=== PATIENT | female | born 1975 | race Native Hawaiian/Other Pacific Islander ===

== ENCOUNTER → 2019-08-12 15:06 | Outpatient (CLI) | payer BC, SELFPAY ==
[2019-08-16 08:38] LABS: COVID19 Sendout Detected (Not Detected)
== END ==
PROVIDERS: Visit Provider Physician Assistant
DX: Z20.828 Contact with and (suspected) exposure to other viral communicable diseases (principal)
CPT/HCPCS: 87635

== ENCOUNTER 2021-10-06 18:45 | Emergency (ER) | payer BC, SELFPAY ==
[2021-10-06 18:58] VITALS: BP 180/100; PULSE 90; RESP 16; TEMP 37; O2SAT 96; BMI 24.0
--- NOTE | 2021-10-06 19:13 | ED_ITS ---
HPI - Female Genitourinary General Chief complaint: Urogenital-Female Stated complaint: UTI Time Seen by Provider: 10/06/21 19:04 Source: patient Mode of arrival: Ambulatory History of Present Illness HPI Narrative: 45-year-old female, nonsmoker, presents to the emergency department with complaints of dysuria x2 weeks. Patient reports that she does get off work until after the clinics are closed, but the burning with urination has gotten worse. Patient admits to not drinking as much water as she should. Patient has had UTIs in the past and this feels identical. Related Data Previous Rx's Medication Instructions Recorded ciprofloxacin HCl 500 mg tablet 500 mg PO BID 5 days #0 tabs 03/18/17 (Cipro) oseltamivir 75 mg capsule (Tamiflu) 75 mg PO BID 5 days #0 caps 03/18/17 sodium,potassium,mag sulfates 17.5 See Rx Instructions PO .COMPLEX 09/25/21 gram-3.13 gram-1.6 gram oral soln #354 mL (Suprep Bowel Prep Kit) nitrofurantoin 100 mg PO BID uti 7 days #14 caps 10/06/21 monohydrate/macrocrystals 100 mg capsule (Macrobid) Allergies Allergy/AdvReac Type Severity Reaction Status Date / Time shellfish derived Allergy Unknown Verified 10/06/21 19:02 [SHELLFISH DERIVED] Review of Systems Review of Systems Narrative: Narrative: GENERAL: Denies chills, fatigue, fever, sweats. See HPI HEENT: Denies sinus pain, ear pain, sore throat, difficulty swallowing, dizziness. RESPIRATORY: Denies dyspnea, cough, wheezing, sputum. CARDIOVASCULAR: Denies chest pain, palpitations, edema. GASTROINTESTINAL: Denies nausea, vomiting, abdominal pain, diarrhea, constipation. : Denies frequency, incontinence, hematuria, urinary retention, flank pain. MSK: Denies weakness, joint pain, or bony pain. SKIN: Denies rash, skin lesions, or pruritis. NEUROLOGIC: Denies weakness, dizziness, headache, numbness, confusion. PSYCHIATRIC: No concerning psychosocial issues. Patient History alcohol intake frequency: 0-2 drinks per day Substance Use Type: does not use Exam Narrative Exam Narrative: Exam Narrative: GENERAL: This is a well-nourished, well-developed patient, in no acute distress HEAD: Atraumatic. Normocephalic. CARDIOVASCULAR: Regular rate and rhythm without murmurs, peripheral pulses intact, cap refill <2 sec. RESPIRATORY: Breath sounds equal and clear bilaterally. No wheezes, rales, or rhonchi. No cough. No increased respiratory effort. No accessory muscle use. GASTROINTESTINAL: Abdomen soft, non-tender, nondistended without guarding or rebound. No suprapubic pain. MSK: Moves all extremities. Normal range of motion, no clubbing or edema. Neurovascularly intact. NEURO: A&O x 3. SKIN: Warm, dry, no rashes or lesions noted. Initial Vital Signs Initial Vital Signs: Vital Signs Temperature 98.6 F 10/06/21 18:58 Pulse Rate 90 10/06/21 18:58 Respiratory Rate 16 10/06/21 18:58 Blood Pressure 180/100 H 10/06/21 18:58 Pulse Oximetry 96 10/06/21 18:58 Oxygen Delivery Method 10/06/21 18:58 Reviewed. Patient and her family doctor are aware of her elevated BP, but did just eat a very greasy dinner, that she was told to avoid. Course Orders Ordered: Discontinued Medications Nitrofurantoin Macrocrystals (Nitrofurantoin Er 100 Mg Capsule) 100 mg PO NOW ONE Stop: 10/06/21 19:27 Last Admin: 10/06/21 19:28 Dose: 100 mg Documented By: AT Vital Signs Vital signs: Vital Signs - 8 hr 10/06/21 18:58 Temperature 98.6 F Pulse Rate 90 Respiratory Rate 16 Blood Pressure 180/100 H Pulse Oximetry 96 Oxygen Delivery Method Room Air MDM - Female Genitourinary Differential Diagnosis Differential diagnosis: Likely urinary tract infection Lab Data Labs: Urine Dip Bedside Urine Glucose 1000 mg/dl Bedside Urine Bilirubin - Negative Bedside Urine Ketone - Negative Urine Specific [place] 1.015 Bedside Urine Occult Blood +/- Bedside Urine pH 6.0 Bedside Urine Protein + 30 Bedside Urine Urobilinogen - Negative Bedside Urine Nitrite - Negative Bedside Urine Leukocytes +/- 15 Esterase [facility] Narrative Medical decision making narrative: 45-year-old female with complaints of dysuria presents emergency department. Urine dip was consistent with UTI (+ bacteria and wbc's). Will treat with Macrobid x7 days. Due to pharmacies being closed, will give the 1st dose in the emergency department. Discussed plan of care and return precautions with patient, who was agreeable with course of action. Discharge Plan Departure Patient Disposition: Home Clinical Impression: UTI (urinary tract infection) Instructions: DI for Urinary Tract Infection (UTI) Activity Restrictions/Additional Instructions: *You have been diagnosed with a urinary tract infection. Please make sure you drink plenty of water with this medication and take it until it is all gone. Will send off a sample for culture and contact you only for requires a change in antibiotics. Please follow-up with your family doctor if symptoms persist or worsen. *What to do: *Please continue to take your regular medications as directed. [ x] New medication prescriptions sent to your pharmacy: [[facility] [place]] [ ] New medication written as a paper prescription [ ] No new medications given *Please follow up with your primary care provider in 2-3 days, call for an appointment. Let them know you were seen in the Emergency Department and that we ask that you be seen in follow up. We will electronically transmit a record of today's note if your PCP is in our system *If you do not have a primary care provider please contact the [facility] Resource line at [phone]. They will ask some questions about your medical history and help get you set up with a doctor in the community. ? Return to ER if you should have any new, worsening or concerning symptoms, such as worsening pain, severe headache, confusion, chest pain, difficulty breathing, fever greater than 101 F, shaking chills, persistent vomiting to the point that you cannot drink fluids, or other new or worsening symptoms. Prescriptions: New nitrofurantoin monohyd/m-cryst [Macrobid] 100 mg capsule 100 mg PO BID 7 Days Qty: 14 0RF Rx Instructions: must administer with a meal/food No Action oseltamivir [Tamiflu] 75 MG capsule 75 mg PO BID 5 Days Qty: 0 0RF ciprofloxacin HCl [Cipro] 500 MG tablet 500 mg PO BID 5 Days Qty: 0 0RF Suprep Bowel Prep Kit 17.5-3.13-1.6 gram recon soln See Rx Instructions PO .COMPLEX Qty: 354 0RF Rx Instructions: Take as directed by Physician Referrals: Juan Antonio Jewell DO [Primary Care Provider] - Visit Report Forms: Patient Portal/API
[2021-10-06] MEDS: NITROFURANTOIN ER 100 MG CAPSULE PO (19:28)
== END 2021-10-06 19:30 | disposition home or self-care (01) ==
PROVIDERS: Emergency Provider Registered Nurse; PCP Family Medicine Sports Medicine
DX: N39.0 Urinary tract infection, site not specified (principal)
CPT/HCPCS: 81003; 99283

== ENCOUNTER → 2022-03-09 13:17 | Outpatient (CLI) | payer BC, SELFPAY ==
--- NOTE | 2022-03-09 | DI.MG.S_ITS ---
BILATERAL DIGITAL SCREENING MAMMOGRAM 3D/2D WITH CAD: 03/09/2022 CLINICAL: Baseline exam. Routine screening. No prior exams were available for comparison. Both breasts are heterogeneously dense, which may obscure small masses (category c / 51-75% glandular tissue). Current study was also evaluated with a Computer Aided Detection (CAD) system. There are benign diffuse calcifications in both breasts. No significant masses, calcifications, or other findings are seen in either breast. IMPRESSION: BENIGN There is no mammographic evidence of malignancy. A 1 year screening mammogram is recommended. Based on the Tyrer Cuzick model (a risk assessment model) the patient's lifetime risk is 6.8% and her 10 year risk is 1.4%. According to the ACR, ACS, and NCCN guidelines, an annual breast MRI exam along with mammogram is recommended if the patient's lifetime risk is 20% or greater. This exam was interpreted at Station ID: [id number]. NOTE: For mammograms, a report in lay terms will be sent to the patient. Approximately 15% of breast malignancies will not be visualized mammographically. In the management of a palpable breast mass, a negative mammogram must not discourage biopsy of a clinically suspicious lesion. Electronically Signed By: Ed reich/faisal:03/09/2022 17:49:13 letter sent: Normal Exam ACR BI-RADS Category 2: Benign Finding(s) 3342F
== END ==
PROVIDERS: PCP Physician Assistant; Referring Provider Physician Assistant; Visit Provider Physician Assistant
DX: Z12.31 Encounter for screening mammogram for malignant neoplasm of breast (principal)
CPT/HCPCS: 77063; 77067

== ENCOUNTER 2022-03-31 11:45 | Day surgery (SDC) | payer BC, SELFPAY ==
--- NOTE | 2022-03-31 | PATH_ITS ---
[facility] Accession Number: [id number] No. of containers..01 Tissue . 01 Material submitted: . colon - TRANSVERSE COLON . 01 Diagnosis: Transverse Colon, Biopsy: Colonic mucosa with a benign lymphoid aggregate, and no other diagnostic abnormality. Negative for active, chronic, and microscopic colitis. Negative for dysplasia and malignancy. MRV 04/06/2022 1345 Local . 01 Electronically signed: . Tuh Fonseca MD, Pathologist NPI- [id number] . 01 Gross description: . TRANSVERSE COLON: Received in formalin are 2 fragment(s) of penny, soft tissue measuring 0.2 x 0.1 x 0.1 cm to 0.1 x 0.1 x 0.1 cm submitted entirely in 1 cassette(s) /CPE 04/01/2022 0507 Local . 01 Pathologist provided ICD-10: Z12.11 . 01 CPT . 879976 Specimen Comment: A courtesy copy of this report has been sent to [phone] Performed at: 01 [facility] [address] [place] [address], [place], [place] [id number] MD Vipin Marmolejo MD Phone: [phone]
[2022-03-31 13:06] VITALS: BP 111/76; PULSE 85; RESP 16; TEMP 36.4; O2SAT 97; BMI 23.8
[2022-03-31] MEDS: LACTATED RINGERS 1,000 ML 100 ML IV (13:20)
--- NOTE | 2022-03-31 14:04 | PM.HP.1 ---
History of Present Illness History of Present Illness Date Patient Seen: 03/31/22 Time Patient Seen: 14:04 Chief complaint: SCREENING COLONOSCOPY Narrative: The patient presents for colorectal screening. They have never had any previous examination for such. No personal or family history of colon cancer. On further history denies any recent gastrointestinal symptoms. No nausea, vomiting, abdominal pain, loss of appetite, unexplained weight loss, change in bowel habits, or blood per rectum. Patient History Medical History (Updated 03/31/22 @ 13:08 by Danilo Santamaria RN) Diabetes 1.5, managed as type 2 Family & Social History Social History: household members children Tobacco & Substance use: Smoking Status Never smoker alcohol intake never alcohol intake frequency 0-2 drinks per day Substance Use Type does not use Meds Home Medications and Allergies Home Medications Medication Instructions Recorded Confirmed Type insulin glargine 100 unit/mL (3 unit SUBCUT 03/31/22 History mL) subcutaneous pen (Lantus Solostar U-100 Insulin) metformin 500 mg tablet 500 mg 03/31/22 History Allergies Allergy/AdvReac Type Severity Reaction Status Date / Time shellfish derived Allergy Unknown Verified 10/06/21 19:02 [SHELLFISH DERIVED] Exam Vital Signs (past 8 hours): - 03/31/22 13:06 Temperature 97.6 F Pulse Rate 85 Respiratory Rate 16 Blood Pressure 111/76 Pulse Oximetry 97 Oxygen Delivery Method Room Air Oxygen Delivery Method Room Air Narrative Exam Narrative: General adult woman alert oriented no acute distress Assessment & Plan Assessment & Plan narrative: The patient requires colorectal screening and colonoscopy is recommended. Technical details were discussed. Risks, benefits, alternatives explained. Risks including but not limited to myocardial infarction, aspiration, bleeding, pain, missed lesion, incomplete examination, need for further radiographic studies, colonic perforation, and need for major abdominal surgery were discussed. All questions were answered to their satisfaction, and they are in agreement with this plan. Time Spent With Patient Critical Care time: I spent a total of [] minutes of critical care time on this patient's care today; this time is exclusive of procedural time.
--- NOTE | 2022-03-31 14:05 | PM.OP.COLON ---
Operative Date/Time/Diagnoses Date of procedure: 03/31/22 Time of procedure: 14:11 Pre-op diagnosis: colorectal screening Post-op diagnosis: same Procedure & Clinicians Study performed: colonoscopy Same procedure as scheduled: Yes Indications: colorectal screening Surgeon: Parker Michel Procedure Notes Procedure in detail: The history and physical was performed/updated and the patient is ASA class is 2. The procedure was discussed in detail with the patient. Potential risks complications including infection, bleeding, missed diagnosis, perforation, need for surgery, and were explained. Their questions were answered and informed consent was obtained. Patient was brought to the procedure room and placed standard monitoring equipment. The patient's vital signs were monitored continuously throughout the entire procedure. Prior to starting time-out was performed. The patient was placed in the left lateral recumbent position. Procedural sedation was administered by anesthesia. Examination began with a thorough inspection of the perianal area there was no evidence of fissures, fistulae, external hemorrhoids or cutaneous malignancy. The colonoscopy scope was then placed into the anal canal and was advanced to the cecum, which was identified by the ileocecal valve, the appendiceal orifice and the confluence of the taenia. The scope was then slowly withdrawn examining colon thoroughly in all directions, irrigating it of any residual stool. -3 mm polyp removed from the descending colon with Jumbo forceps The patient tolerated the procedure well. They will be discharged once criteria are met. The prep was of good/excellent quality. The withdrawl time was 7 minutes. Specimen(s): other (Descending colon polyp) Impression: Colonic polyp Post-procedure Recommendations: High fiber diet Plan for aftercare: Follow-up is dependent on pathology findings Disposition: same day surgery
[2022-03-31 14:32] VITALS: BP 104/76; PULSE 85; RESP 18; TEMP 36.3; O2SAT 98
[2022-03-31 14:39] VITALS: BP 104/76; PULSE 79; RESP 21; O2SAT 100
[2022-03-31 14:42] VITALS: BP 123/81; PULSE 76; RESP 18; TEMP 36.4; O2SAT 100
[2022-03-31 14:44] VITALS: BP 125/82; PULSE 77; RESP 16; O2SAT 100
--- NOTE | 2022-03-31 15:07 | SUR.PHASEII ---
Dr. Ray notified [id number]. Per MD patient is to take half of her insulin regimen upon arriving at home. Patient notified.
--- NOTE | 2022-03-31 15:09 | SUR.PHASEII ---
Patient waiting for ride.
--- NOTE | 2022-03-31 16:48 | SUR.PHASEII ---
Patient's ride arrived.
== END 2022-03-31 16:42 | disposition home or self-care (01) ==
PROVIDERS: PCP Physician Assistant; Referring Provider Surgery; Visit Provider Surgery
PROC: 0DJD8ZZ Inspection of Lower Intestinal Tract, Via Natural or Artificial Opening Endoscopic (ICD-10-PCS; CPT 45378; principal; 2022-03-31 13:45)
DX: Z12.11 Encounter for screening for malignant neoplasm of colon (principal)
CPT/HCPCS: 45380; 82962; J2704; J3010

== ENCOUNTER 2023-02-25 16:17 | Emergency (ER) | payer OTHER, MEDICAID, SELFPAY ==
[2023-02-25 16:30] VITALS: BP 183/98; PULSE 85; RESP 18; TEMP 37.1; O2SAT 98; BMI 22.4
--- NOTE | 2023-02-25 17:04 | PC.NURSE ---
Patient somehow pushed the back of her earring into her ear lobe and now it's stuck. She states that's its too painful to get out herself now.
--- NOTE | 2023-02-25 18:08 | ED.EAR ---
HPI - Ear Problem General Chief complaint: Ear Stated complaint: left sided ear pain, earring stuck Source: patient Mode of arrival: Ambulatory History of Present Illness HPI Narrative: 47-year-old female, never smoker, presents to the emergency department with concerns that the backing of her earring is imbedded in her left earlobe x2 days. Patient attempted to remove it yesterday prior to getting dental x-rays, but found that she was not able to baker second the backing. Patient reports that the backing is a locking mechanism and not easy to baker second. Related Data Home Medications Medication Instructions Recorded Confirmed insulin glargine 100 unit/mL (3 unit SUBCUT 03/31/22 mL) subcutaneous pen (Lantus Solostar U-100 Insulin) metformin 500 mg tablet 500 mg 03/31/22 Allergies Allergy/AdvReac Type Severity Reaction Status Date / Time shellfish derived Allergy Unknown Verified 02/25/23 16:32 [SHELLFISH DERIVED] Review of Systems Review of Systems Narrative: Narrative: See HPI. GENERAL: Denies chills, fatigue, fever, sweats. HEENT: Denies sinus pain, ear pain, sore throat, difficulty swallowing, dizziness. Endorses left earlobe pain. RESPIRATORY: Denies dyspnea, cough, wheezing, sputum. CARDIOVASCULAR: Denies chest pain, palpitations, edema. GASTROINTESTINAL: Denies nausea, vomiting, abdominal pain, diarrhea, constipation. MSK: Denies weakness, joint pain, or bony pain. SKIN: Denies rash, skin lesions, or pruritis. Left earlobe is red and swollen. NEUROLOGIC: Denies weakness, dizziness, headache, numbness, confusion. Patient History Medical History Diabetes 1.5, managed as type 2 Social History household members: children Smoking Status: Never smoker alcohol intake: never Smoking Status: Never smoker alcohol intake frequency: 0-2 drinks per day Substance Use Type: does not use Exam Narrative Exam Narrative: Exam Narrative: GENERAL: This is a well-nourished, well-developed patient, in no acute distress HEAD: Atraumatic. Normocephalic. ENT: Nose without bleeding, purulent drainage. Airway patent. TMs and canals clear. Left earlobe is red and swollen with imbedded earring backing. RESPIRATORY: Respiratory rate and effort are normal. MSK: Moves all extremities. Normal range of motion, no clubbing or edema. Neurovascularly intact. NEURO: A&O x 3. SKIN: Warm, dry, no rashes or lesions noted. Initial Vital Signs Initial Vital Signs: Vital Signs Temperature 98.8 F 02/25/23 16:30 Pulse Rate 85 02/25/23 16:30 Respiratory Rate 18 02/25/23 16:30 Blood Pressure 183/98 H 02/25/23 16:30 Pulse Oximetry 98 02/25/23 16:30 Oxygen Delivery Method Room Air 02/25/23 16:30 Reviewed Course Orders Ordered: Discontinued Medications Lidocaine HCl (Lidocaine 1% (Pf) 5 Ml) 5 ml INJ INTRA-OP ONE Stop: 02/25/23 18:31 Last Admin: 02/25/23 18:24 Dose: 5 ml Documented By: TEODORA Vital Signs Vital signs: Vital Signs - 8 hr 02/25/23 16:30 Temperature 98.8 F Pulse Rate 85 Respiratory Rate 18 Blood Pressure 183/98 H Pulse Oximetry 98 Oxygen Delivery Method Room Air Medical Decision Making Differential Diagnosis Differential Diagnosis: Foreign body in left earlobe, cellulitis MDM Narrative Medical decision making narrative: 47-year-old female with imbedded ear backing and left earlobe. Site was anesthetized with 1% lidocaine and was able to retract the earlobe to expose the locking mechanism of the earring backing. Patient tolerated procedure well. Will place patient on antibiotic therapy. Patient will follow up with family doctor as needed. Discussed plan of care with patient, who verbalized understanding and was agreeable with course of action. Discharge Plan Departure Patient Disposition: Home Clinical Impression: Foreign body in left ear lobe Activity Restrictions/Additional Instructions: *You have been diagnosed with imbedded foreign body of your left earlobe. We were able to anesthetize your ear and remove the backing of your earring. You have a infection and we will put you on some antibiotics for treatment. You may also apply warm compresses 2 to 3 times a day to facilitate any drainage. You can return to work tomorrow, if you are feeling better. *What to do: *Please continue to take your regular medications as directed. [ x] New medication prescriptions sent to your pharmacy: [[facility]] [ ] New medication written as a paper prescription [ ] No new medications given *Please follow up with your primary care provider in 2-3 days, call for an appointment. Let them know you were seen in the Emergency Department and that we ask that you be seen in follow up. We will electronically transmit a record of today's note if your PCP is in our system *If you do not have a primary care provider please contact the [facility] Resource line at [phone]. They will ask some questions about your medical history and help get you set up with a doctor in the community. ? Return to ER if you should have any new, worsening or concerning symptoms, such as worsening pain, severe headache, confusion, chest pain, difficulty breathing, fever greater than 101 F, shaking chills, persistent vomiting to the point that you cannot drink fluids, or other new or worsening symptoms. Prescriptions: No Action metformin 500 mg tablet 500 mg insulin glargine [Lantus Solostar U-100 Insulin] 100 unit/mL (3 mL) insulin pen SUBCUT Referrals: Sujatha Marmolejo PA-C [Primary Care Provider] - Stand Alone Forms: Patient Portal/API, Work Release Note
[2023-02-25] MEDS: LIDOCAINE 1% (PF) 5 ML INJ (18:24)
[2023-02-25 19:45] VITALS: BP 175/102; PULSE 79; RESP 12; O2SAT 99
== END 2023-02-25 19:50 | disposition home or self-care (01) ==
PROVIDERS: Emergency Provider Registered Nurse; PCP Physician Assistant
DX: S00.452A Superficial foreign body of left ear, initial encounter (principal)
CPT/HCPCS: 10120; 99282; 99283